=== PATIENT | male | born 1965 | race Caucasian/White ===

== ENCOUNTER 2016-05-26 14:52 | Emergency (ER) | payer MEDICAID, MEDICARE ==
[~2016-05-26] VITALS: Ht 177.8 cm; Wt 114.5 kg
[~2016-05-26 14:52] MED LIST: BENI20TA25 PO; CYCL-36 PO; DIAZ5 PO; PRED5 PO; TRAZ100T4 PO
[2016-05-26 15:01] VITALS: BP 136/79; PULSE 103; RESP 20; TEMP 99.3; O2SAT 97
[2016-05-26] MEDS ORDERED: CYCL1TAB29 PO (15:19)
[2016-05-26] MEDS ORDERED: BENI20TA5 PO (15:19)
[2016-05-26] MEDS ORDERED: ZEGE20CA4 PO (15:19)
[2016-05-26] MEDS ORDERED: PRED5TAB PO (15:19)
[2016-05-26] MEDS ORDERED: IBUP800T23 PO (15:19)
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
== END 2016-05-26 17:02 | disposition left against medical advice (07) ==
LOC: PHEFT 14:52
DX: F41.8 Other specified anxiety disorders (principal); S89.81XA Other specified injuries of right lower leg, initial encounter; I10 Essential (primary) hypertension; Z72.0 Tobacco use; F10.20 Alcohol dependence, uncomplicated; V09.09XA Pedestrian injured in nontraffic accident involving other motor vehicles, initial encounter; Y93.I9 Activity, other involving external motion; Y99.9 Unspecified external cause status
CPT/HCPCS: 99283

== ENCOUNTER 2016-09-27 13:53 | Observation (INO) | payer OTHER ==
[~2016-09-27] VITALS: Ht 177.8 cm; Wt 111.4 kg
[~2016-09-27 13:53] MED LIST changes: -BENI20TA25 PO; +BENI20TA5 PO; -CYCL-36 PO; +CYCL1TAB29 PO; -DIAZ5 PO; +IBUP800T23 PO; -PRED5 PO; +PRED5TAB PO; -TRAZ100T4 PO; +ZEGE20CA4 PO
[2016-09-27 13:55] VITALS: BP 165/101; PULSE 87; RESP 24; TEMP 99.1; O2SAT 97
[2016-09-27 14:45] VITALS: O2SAT 99
[2016-09-27] MEDS ORDERED: methylPREDNISolone SOD SUCC 125 MG/2 ML VIAL IVP ONE (14:45)
[2016-09-27] MEDS ORDERED: SODIUM CHLORIDE 0.9% FLUSH 10 ML FLUSH IVF PRN (14:45)
[2016-09-27] MEDS ORDERED: MORPHINE SULFATE 4 MG/ML INJ IV PUSH ONE ×2 (14:45→17:45)
--- NOTE | 2016-09-27 14:55 | RADRPT ---
EXAM DATE/TIME: 09/27/2016 14:49 [facility] COMPARISON: No previous studies available for comparison. INDICATIONS : Cough and left side chest pain for one week. MEDICAL HISTORY : Smoker. SURGICAL HISTORY : None. ENCOUNTER: Initial ACUITY: 1 week PAIN SCORE: 8/10 LOCATION: Left chest FINDINGS: A single view of the chest demonstrates the lungs to be symmetrically aerated without evidence of mas s, infiltrate or effusion. The cardiomediastinal contours are unremarkable. Osseous structures are intact. CONCLUSION: No acute disease. Mj Brooks MD on September 27, 2016 at 14:54 Board Certified Radiologist. This report was verified electronically.
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
[2016-09-27] MEDS: RESP: ALBUTEROL 2.5 MG/IPRATROPIUM 0.5 MG NEB (SCH) INH ×2 (15:30→15:33)
[2016-09-27 15:44] LABS: AUTOMATED NEUTROPHIL # 6.3 TH/MM3 (1.8-7.7); BASOPHIL % 0.5 % (0.0-2.0); EOSINOPHIL # 0.4 TH/MM3 (0-0.4); EOSINOPHIL % 3.8 % (0.0-4.0); HEMATOCRIT 47.6 % (39.0-51.0); HEMO FLAGS DIFF FINAL; LYMPH % 20.9 % (9.0-44.0); MEAN CELL VOLUME 90.6 FL (80.0-100.0); MEAN CORPUSCULAR HEMOGLOBIN 31.3 PG (27.0-34.0); MEAN CORPUSCULAR HGB CONC 34.5 % (32.0-36.0); MONO % 9.4 % (0.0-8.0); NEUT % 65.4 % (16.0-70.0); PLATELET COUNT 257 TH/MM3 (150-450); RED BLOOD COUNT 5.25 MIL/MM3 (4.50-5.90); RED CELL DISTRIBUTION WIDTH 13.9 % (11.6-17.2); WHITE BLOOD COUNT 9.6 TH/MM3 (4.0-11.0)
[2016-09-27 16:03] LABS: APTT (PATIENT) 28.2 SEC (24.3-30.1); PROTHROMBIN TIME - PATIENT 10.5 SEC (9.8-11.6)
[2016-09-27 16:06] LABS: ALT (GPT) 26 U/L (12-78); ANION GAP 10 MEQ/L (5-15); AST (GOT) 20 U/L (15-37); BICARBONATE 27.5 MEQ/L (21.0-32.0); BLOOD UREA NITROGEN 4 MG/DL (7-18); CHLORIDE 101 MEQ/L (98-107); GLOMERULAR FILTRATION RATE 119 ML/MIN (>89); POTASSIUM 4.1 MEQ/L (3.5-5.1); SODIUM (NA) 138 MEQ/L (136-145)
[2016-09-27 16:20] LABS: ALKALINE PHOSPHATASE 77 U/L (45-117); CREATINE KINASE 116 U/L (39-308); TOTAL BILIRUBIN ADULT 0.3 MG/DL (0.2-1.0)
[2016-09-27 16:38] LABS: CKMB 3.8 NG/ML (0.5-3.6)
[2016-09-27 16:45] VITALS: BP 155/72; PULSE 105; RESP 19; O2SAT 92
[2016-09-27] MEDS ORDERED: IOHEXOL 350 MG/ML 10 ML VIAL (for RAD DIAG) IV ONE (17:20)
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
[2016-09-27 17:48] VITALS: BP 157/75; PULSE 105; RESP 19; O2SAT 92
[2016-09-27] MEDS ORDERED: RESP: ALBUTEROL 1.25 MG/3 ML NEB (PRN) NEB (18:00)
[2016-09-27] MEDS ORDERED: ACETAMINOPHEN/HYDROcodone 325 MG/5 MG TAB PO PRN ×3 (18:00→18:15)
[2016-09-27] MEDS ORDERED: RESP: ALBUTEROL 2.5 MG/IPRATROPIUM 0.5 MG NEB (SCH) NEB (20:00)
[2016-09-27 20:06] VITALS: BP 170/91; PULSE 119; RESP 18; TEMP 99.4; O2SAT 92
[2016-09-27] MEDS ORDERED: LIDOCAINE HCL 5% PATCH T-DERMAL PRN (20:30)
[2016-09-27] MEDS ORDERED: RESP: ALBUTEROL 2.5 MG/IPRATROPIUM 0.5 MG NEB (PRN) NEB (20:30)
[2016-09-27] MEDS ORDERED: BISACODYL 10 MG SUPP RECTAL PRN (20:30)
[2016-09-27] MEDS ORDERED: ACETAMINOPHEN 325 MG TAB PO PRN (20:30)
[2016-09-27] MEDS ORDERED: SODIUM CHLORIDE 0.9% FLUSH 10 ML FLUSH IV FLUSH PRN (20:30)
[2016-09-27] MEDS ORDERED: ONDANSETRON HCL 4 MG/2 ML VIAL IVP PRN (20:30)
--- NOTE | 2016-09-27 20:34 | HHI.HP ---
[facility] Dali Nelson MD Admission Diagnosis chest pain, rib fracture, reactive airway disease, hypoxia Diagnoses: (1) Chest pain Diagnosis: Principal (2) Rib fracture Diagnosis: Principal (3) COPD (chronic obstructive pulmonary disease) Diagnosis: Principal (4) Tobacco abuse Diagnosis: Principal Travel History International Travel<30 Days: No Contact w/Intl Traveler <30 Da: No Traveled to Known Affected Are: No History of Present Illness This is a 51-year-old male with PMH of Anxiety, Depression, h/o Left BKA, COPD and Tobacco Abuse who was brought to the ER by EMS secondary to complaints of chest pain and cough x5 days, thinks he may have a broken rib although denies recent injury/trauma. No fever, chills or SOB reported. On arrival, BP 165/101 , HR 87, O2 sat 97% on RA, Temp 99.1. CBC unremarkable. Chemistry essentially unremarkable. Troponin negative. CXR with no acute findings. CTA Pulm negative for PE, noted to have minimally displaced fracture of left 6th rib and old fractures of left 7th and 8th ribs. On exam, pt noted to have wheezing, s/ p Solu-Medrol and DuoNeb in ER w/ some improvement. Review of Systems Except as stated in HPI: all other systems reviewed are Neg ROS: 14 point review of systems otherwise negative. Past Family Social History Past Medical History PMH: Anxiety, Depression, h/o Left BKA, COPD and Tobacco Abuse Past Surgical History PAST SURGICAL HISTORY: Hernia Repair, Craniotomy Allergies: Coded Allergies: Codeine (Verified Allergy, Severe, 09/27/16) Penicillin (Verified Allergy, Severe, 09/27/16) Xanax (Verified Allergy, Severe, 09/27/16) Family History PAST FAMILY HISTORY: Reviewed. No h/o DM or CAD Social History PAST SOCIAL HISTORY: Positive for alcohol. Positive for tobacco. Negative for drugs. Physical Exam Vital Signs Vital Signs Date Time Temp Pulse Resp B/P Pulse Ox O2 Delivery O2 Flow Rate FiO2 09/27/16 20:06 99.4 119 18 170/91 92 09/27/16 17:48 105 19 157/75 92 Nasal Cannula 4 09/27/16 17:45 94 Nasal Cannula 4 09/27/16 16:45 105 19 155/72 92 Room Air 09/27/16 14:45 99 Room Air 09/27/16 14:45 99 Room Air 09/27/16 13:58 98 Room Air 09/27/16 13:55 99.1 87 24 165/101 97 Physical Exam PE: GENERAL: Middle-aged male in no acute distress. HEENT: PERRLA, EOMI. No scleral icterus or conjunctival pallor. No lid lag or facial droop. CARDIOVASCULAR: Regular rate and rhythm. No obvious murmurs to auscultation. No chest tenderness to palpation. Left rib cage tenderness to palpation RESPIRATORY: No obvious rhonchi. Occasional wheezing. Clear to auscultation. Breath sounds equal bilaterally. GASTROINTESTINAL: Abdomen soft, non-tender, nondistended. BS normal. MUSCULOSKELETAL: Extremities without clubbing, cyanosis, or edema. No obvious deformities. Left K NEUROLOGICAL: Awake, alert and oriented x4. No focal neurologic deficits. Moving both upper and lower extremities spontaneously. Laboratory Laboratory Tests Test 09/27/16 14:55 White Blood Count 9.6 Red Blood Count 5.25 Hemoglobin 16.4 Hematocrit 47.6 Mean Corpuscular Volume 90.6 Mean Corpuscular Hemoglobin 31.3 Mean Corpuscular Hemoglobin 34.5 Concent Red Cell Distribution Width 13.9 Platelet Count 257 Mean Platelet Volume 9.2 Neutrophils (%) (Auto) 65.4 Lymphocytes (%) (Auto) 20.9 Monocytes (%) (Auto) 9.4 Eosinophils (%) (Auto) 3.8 Basophils (%) (Auto) 0.5 Neutrophils # (Auto) 6.3 Lymphocytes # (Auto) 2.0 Monocytes # (Auto) 0.9 Eosinophils # (Auto) 0.4 Basophils # (Auto) 0.0 CBC Comment DIFF FINAL Differential Comment Prothrombin Time 10.5 Prothromb Time International 1.0 Ratio Activated Partial 28.2 Thromboplast Time Sodium Level 138 Potassium Level 4.1 Chloride Level 101 Carbon Dioxide Level 27.5 Anion Gap 10 Blood Urea Nitrogen 4 Creatinine 0.70 Estimat Glomerular Filtration 119 Rate Random Glucose 94 Calcium Level 9.1 Total Bilirubin 0.3 Aspartate Amino Transf 20 (AST/SGOT) Alanine Aminotransferase 26 (ALT/SGPT) Alkaline Phosphatase 77 Total Creatine Kinase 116 Creatine Kinase MB 3.8 Troponin I LESS THAN 0.02 Total Protein 7.2 Albumin 3.5 Ethyl Alcohol Level LESS THAN 3 Result Diagram: 09/27/16 1455 09/27/16 1455 Assessment and Plan Problem List: (1) Chest pain ICD Code: R07.9 Status: Acute (2) Rib fracture ICD Code: S22.39XA Status: Acute (3) COPD (chronic obstructive pulmonary disease) ICD Code: J44.9 Status: Acute (4) Tobacco abuse ICD Code: Z72.0 Status: Acute Assessment and Plan A/P: 1. Chest Pain: Atypical, unlikely cardiac in origin, likely secondary to acute rib fracture and COPD. Initial trop negative, EKG w/ no acute ischemia. Admit for Observation, place on telemetry, check serial cardiac enzymes, analgesics/antiemetics as needed. ASA, Statin, Metoprolol. 2. Rib Fracture: CXR w/ no acute findings. CTA Pulm negative for PE, positive for acute left 6th rib fracture, old left 7th and 8th fractures, images reviewed by me, denies trauma/injury. Lidoderm patch prn, DuoNeb, analgesics. 3. COPD: Chronic Respiratory Failure w/ Acute Exacerbation, +wheezing on exam , CXR w/ no acute findings as above. S/p Solu-Medrol and DuoNeb w/ some improvement, continue w/ Solu-Medrol, DuoNeb, Mucinex, Symbicort. 4. HTN: Uncontrolled. BP 150-170's, start Metoprolol, monitor BP. 5. Tobacco Abuse: Pt counselled. Ativan prn if needed, no NicoDerm to avoid vasoconstriction. 6. DVT Prophylaxis: SCD/teds. 7. Social work for DC planning as needed. 8. Case discussed at length with ER physician. Problem Qualifiers (1) Chest pain: Qualified Code: R07.9 - Chest pain, unspecified type (2) Rib fracture: Qualified Code: S22.32XA - Closed fracture of one rib of left side, initial encounter Ritu Park MD September 27, 2016 20:34
[2016-09-27 20:42] VITALS: O2SAT 92
[2016-09-27] MEDS ORDERED: REMOVE OLD LIDOCAINE PATCH T-DERMAL PRN (20:45)
[2016-09-27] MEDS: guaiFENesin E.R. 600 MG TAB PO SCH (22:30)
[2016-09-27] MEDS: SODIUM CHLORIDE 0.9% FLUSH 10 ML FLUSH IV FLUSH SCH (22:31)
[2016-09-27] MEDS: methylPREDNISolone SOD SUCC 40 MG/1 ML VIAL IV PUSH SCH (22:31)
[2016-09-27] MEDS: BUDESONIDE-FORMOTEROL 160/4.5 MCG INHALER INH SCH (23:00)
[2016-09-27] MEDS: MORPHINE SULFATE 4 MG/ML INJ IV PUSH PRN (23:01)
[2016-09-28] VITALS (9 sets, daily range): BP systolic 123–178; BP diastolic 71–95; PULSE 96–115; RESP 19–22; TEMP 96.8–99.4; O2SAT 92–99
[2016-09-28] MEDS: methylPREDNISolone SOD SUCC 40 MG/1 ML VIAL IV PUSH SCH ×4 (04:05→23:48)
[2016-09-28 05:13] LABS: AUTOMATED NEUTROPHIL # 12.4 TH/MM3 (1.8-7.7); BASOPHIL % 0.3 % (0.0-2.0); EOSINOPHIL % 0.1 % (0.0-4.0); HEMATOCRIT 49.4 % (39.0-51.0); HEMO FLAGS DIFF FINAL; LYMPH % 7.7 % (9.0-44.0); LYMPHOCYTE # 1.1 TH/MM3 (1.0-4.8); MEAN CELL VOLUME 91.6 FL (80.0-100.0); MEAN CORPUSCULAR HEMOGLOBIN 30.6 PG (27.0-34.0); MEAN CORPUSCULAR HGB CONC 33.4 % (32.0-36.0); MONO % 4.1 % (0.0-8.0); NEUT % 87.8 % (16.0-70.0); PLATELET COUNT 300 TH/MM3 (150-450); RED BLOOD COUNT 5.39 MIL/MM3 (4.50-5.90); RED CELL DISTRIBUTION WIDTH 13.7 % (11.6-17.2); WHITE BLOOD COUNT 14.1 TH/MM3 (4.0-11.0)
[2016-09-28 05:31] LABS: ALT (GPT) 25 U/L (12-78); ANION GAP 9 MEQ/L (5-15); AST (GOT) 14 U/L (15-37); BLOOD UREA NITROGEN 8 MG/DL (7-18); CHLORIDE 99 MEQ/L (98-107); GLOMERULAR FILTRATION RATE 89 ML/MIN (>89); POTASSIUM 4.2 MEQ/L (3.5-5.1); SODIUM (NA) 136 MEQ/L (136-145)
[2016-09-28 05:34] LABS: ALKALINE PHOSPHATASE 80 U/L (45-117); TOTAL BILIRUBIN ADULT 0.5 MG/DL (0.2-1.0)
[2016-09-28] MEDS: RESP: ALBUTEROL 2.5 MG/IPRATROPIUM 0.5 MG NEB (SCH) NEB ×4 (07:53→19:29)
[2016-09-28] MEDS ORDERED: METOPROLOL TARTRATE 25 MG TAB PO SCH (09:00)
[2016-09-28] MEDS: ASPIRIN EC 81 MG TABEC PO SCH (09:46)
[2016-09-28] MEDS: guaiFENesin E.R. 600 MG TAB PO SCH ×2 (09:46→19:53)
[2016-09-28] MEDS: BUDESONIDE-FORMOTEROL 160/4.5 MCG INHALER INH SCH ×2 (09:46→19:54)
[2016-09-28] MEDS: PRAVASTATIN SOD 40 MG TAB PO SCH (09:46)
[2016-09-28] MEDS: SODIUM CHLORIDE 0.9% FLUSH 10 ML FLUSH IV FLUSH SCH ×2 (09:47→19:54)
[2016-09-28] MEDS: MORPHINE SULFATE 4 MG/ML INJ IV PUSH PRN ×3 (09:56→22:25)
[2016-09-28] MEDS ORDERED: ENDO10TA8 PO (11:02)
--- NOTE | 2016-09-28 11:27 | HHI.PR ---
Subjective Remarks Follow up for COPD exacerbation, rib fracture, chest pain. The patient reports feeling slightly better however still short of breath and wheezing. He does not feel ready for discharge. Chest pain improved. Now has left posterior thorax pain when he coughs.Still with intractable nonproductive cough, worse with deep inspiration. Denies fevers/chills. He feels the nebulizer treatments are helping tremendously. O2 sat 92% on room air. He does not wear oxygen at home. He also does not have any medications at home for his COPD, including no rescue inhaler. He also complains of chronic back pain. He sees Dr. Ramey pain management, last seen 1-2 weeks ago, states he's prescribed Percocet 10mg q6h prn pain which I was able to verify on [employer] [place] [facility] Drug Monitoring website. The patient reports exacerbation of his back spasms, requests flexeril or soma, he states he is also prescribed this by pain management. Objective Vitals Vital Signs Date Time Temp Pulse Resp B/P Pulse Ox O2 Delivery O2 Flow Rate FiO2 09/28/16 07:53 92 21 09/28/16 07:34 98.3 98 22 147/95 99 09/28/16 05:35 22 09/28/16 04:00 99.4 106 22 132/76 92 09/28/16 01:31 20 09/28/16 00:00 99.3 115 22 178/95 92 09/27/16 20:42 92 21 09/27/16 20:06 99.4 119 18 170/91 92 09/27/16 17:48 105 19 157/75 92 Nasal Cannula 4 09/27/16 17:45 94 Nasal Cannula 4 09/27/16 16:45 105 19 155/72 92 Room Air 09/27/16 14:45 99 Room Air 09/27/16 14:45 99 Room Air 09/27/16 13:58 98 Room Air 09/27/16 13:55 99.1 87 24 165/101 97 I/O 09/27/16 09/27/16 09/27/16 09/28/16 09/28/16 09/28/16 07:00 15:00 23:00 07:00 15:00 23:00 Intake Total 500 ml Output Total 1800 ml Balance -1300 ml Intake Oral 500 ml Output Urine Total 1800 ml # Bowel Movements 0 Result Diagram: 09/28/16 0423 09/28/16 0423 Imaging Last Impressions Chest X-Ray 09/27/16 1437 Signed Impressions: Service Date/Time: Tuesday, September 27, 2016 14:49 - CONCLUSION: No acute disease. Mj Brooks MD CT Angiography 09/27/16 1437 Signed Impressions: Service Date/Time: Tuesday, September 27, 2016 17:03 - CONCLUSION: 1. No pulmonary embolus. 2. Minimally displaced fracture posteriorly of the left sixth rib that is potentially recent. There are old fractures of the left seventh and eighth ribs with incomplete healing. 3. Left posterior pleural thickening and tiny effusion. Mild left base atelectasis. 4. Coronary artery calcification. Abdirashid Conde MD Objective Remarks GENERAL: Well-nourished, well-developed disheveled appearing middle aged male patient in [facility]. SKIN: Warm and dry. No rash. HEENT: Normocephalic. Atraumatic.Pupils equal and round. Mucous membranes pink and moist. NECK: Supple. Trachea midline. CARDIOVASCULAR: Regular rate and rhythm. S1, S2 noted. No murmur appreciated. Left anterior and posterior chest wall tender to palpation. RESPIRATORY: No accessory muscle use. Diffuse expiratory wheezing with diminished breath sounds at bilateral bases. GASTROINTESTINAL: Abdomen soft, non-tender, nondistended. Normoactive bowel sounds x4. MUSCULOSKELETAL: Left BKA. Extremities without clubbing, cyanosis, or edema. NEUROLOGICAL: Awake and alert. No obvious cranial nerve deficits. Motor grossly within normal limits. Normal speech. PSYCHIATRIC: Appropriate mood and affect; insight and judgment normal. Medications and IVs Current Medications Medications (Trade) Dose Ordered Sig/Lan Route Start Time Stop Time Status Last Admin (SoluMEDROL INJ) 40 mg Q6HR IV PUSH 09/28/16 00:00 09/28/16 04:05 (Symbicort 160-4.5 Inh) 2 puff Q12HR INH 09/27/16 21:00 09/28/16 09:46 (Mucinex Er) 600 mg BID PO 09/27/16 21:00 09/28/16 09:46 (NS Flush) 2 ml UNSCH PRN IV FLUSH 09/27/16 20:30 (NS Flush) 2 ml BID IV FLUSH 09/27/16 21:00 09/28/16 09:47 (Zofran Inj) 4 mg Q6H PRN IVP 09/27/16 20:30 (Dulcolax Supp) 10 mg DAILY PRN RECTAL 09/27/16 20:30 (Tylenol) 650 mg Q6H PRN PO 09/27/16 20:30 (Lidoderm 5% Patch.12 Hr) 1 patch DAILY PRN T-DERMAL 09/27/16 20:30 Miscellaneous Information 1 Q24H PRN T-DERMAL 09/27/16 20:45 (Lopressor) 25 mg Q12HR PO 09/28/16 09:00 09/28/16 09:46 (Ecotrin Ec) 81 mg DAILY PO 09/28/16 09:00 09/28/16 09:46 (Pravachol) 40 mg DAILY PO 09/28/16 09:00 09/28/16 09:46 (Percocet 10-325 Mg) 1 tab Q6H PRN PO 09/28/16 11:15 UNV (Morphine Inj) 2 mg Q4H PRN IV PUSH 09/28/16 12:30 UNV A/P Problem List: (1) Chest pain ICD Code: R07.9 Status: Acute (2) Rib fracture ICD Code: S22.39XA Status: Acute (3) COPD (chronic obstructive pulmonary disease) ICD Code: J44.9 Status: Acute (4) Tobacco abuse ICD Code: Z72.0 Status: Acute Assessment and Plan 51-year-old male with PMH of Anxiety, Depression, h/o Left BKA, COPD and Tobacco Abuse who was brought to the ER by EMS secondary to complaints of chest pain and cough x5 days, thinks he may have a broken rib although denies recent injury/trauma. Chest Pain: Atypical, unlikely cardiac in origin, likely secondary to acute rib fracture and COPD. ACS ruled out with negative serial cardiac enzymes x3 and EKG w/ no acute ischemia. Analgesics/antiemetics as needed. ASA, Statin. Avoid BB with acute COPD exac. Check lipid panel in am. Acute Rib Fracture: CXR w/ no acute findings. CTA Pulm negative for PE, positive for acute left posterior 6th rib fracture, old left 7th and 8th fractures, images reviewed by me, denies trauma/injury. Lidoderm patch prn, DuoNeb, analgesics. Acute COPD Exacerbation: significant wheezing on exam, CXR w/ no acute findings as above. Continue IV Solu-Medrol 40mg q6h, DuoNeb q4h lan and q2h prn, Mucinex bid, Symbicort bid. Add Tessalon for cough. Incentive spirometry. Consider walk test tomorrow when patient improves. HTN: Uncontrolled. BP 150-170's, start Norvasc, monitor BP, adjust dosing as needed. Tobacco Abuse: Pt counselled. Ativan prn if needed, no NicoDerm to avoid vasoconstriction. Chronic Back Pain: follows with pain management Dr. Ramey. Restart patient's Percocet 10/325mg q6h prn pain (dosing verified on [employer] [facility] [place] [facility] Monitoring website). Flexeril prn spasms. DVT Prophylaxis: SCD/teds. Discharge Planning Pending further clinical improvement. Not yet ready for discharge. Likely discharge tomorrow. Problem Qualifiers (1) Chest pain: Qualified Code: R07.9 - Chest pain, unspecified type (2) Rib fracture: Qualified Code: S22.32XA - Closed fracture of one rib of left side, initial encounter Michelle Travis PA-C September 28, 2016 11:27 am
[2016-09-28] MEDS ORDERED: amLODIPine BESYLATE 5 MG TAB PO ONE (11:30)
[2016-09-28] MEDS ORDERED: CYCLOBENZAPRINE HCL 10 MG TAB PO PRN (12:00)
[2016-09-28] MEDS: BENZONATATE 100 MG CAP PO SCH ×2 (13:12→17:19)
[2016-09-28] MEDS: NICOTINE 21 MG/24 HR PATCH T-DERMAL SCH (17:12)
[2016-09-28] MEDS: oxyCODONE/ACETAMINOPHEN 10 MG/325 MG TAB PO PRN (19:54)
[2016-09-28] MEDS ORDERED: MELATONIN 5 MG TAB PO ONE (20:15)
[2016-09-29] VITALS (8 sets, daily range): BP systolic 130–152; BP diastolic 58–89; PULSE 93–108; RESP 16–20; TEMP 98–98.9; O2SAT 91–94
[2016-09-29] MEDS: oxyCODONE/ACETAMINOPHEN 10 MG/325 MG TAB PO PRN ×4 (01:34→21:59)
[2016-09-29] MEDS: methylPREDNISolone SOD SUCC 40 MG/1 ML VIAL IV PUSH SCH (05:41)
[2016-09-29] MEDS: MORPHINE SULFATE 4 MG/ML INJ IV PUSH PRN ×3 (05:42→19:04)
[2016-09-29] MEDS: RESP: ALBUTEROL 2.5 MG/IPRATROPIUM 0.5 MG NEB (SCH) NEB ×4 (07:08→19:15)
[2016-09-29] MEDS: BUDESONIDE-FORMOTEROL 160/4.5 MCG INHALER INH SCH ×2 (09:00→20:18)
[2016-09-29] MEDS: amLODIPine BESYLATE 5 MG TAB PO SCH (09:38)
[2016-09-29] MEDS: ASPIRIN EC 81 MG TABEC PO SCH (09:38)
[2016-09-29] MEDS: BENZONATATE 100 MG CAP PO SCH ×3 (09:38→17:23)
[2016-09-29] MEDS: guaiFENesin E.R. 600 MG TAB PO SCH ×2 (09:38→20:18)
[2016-09-29] MEDS: PANTOPRAZOLE SOD 40 MG DELAYED RELEASE TAB PO SCH (09:39)
[2016-09-29] MEDS: SODIUM CHLORIDE 0.9% FLUSH 10 ML FLUSH IV FLUSH SCH ×2 (09:39→20:20)
[2016-09-29] MEDS: PRAVASTATIN SOD 40 MG TAB PO SCH (09:39)
[2016-09-29] MEDS: NICOTINE 21 MG/24 HR PATCH T-DERMAL SCH (09:39)
[2016-09-29] MEDS: REMOVE OLD PATCH T-DERMAL SCH (09:40)
--- NOTE | 2016-09-29 11:14 | HHI.PR ---
Subjective Remarks Follow-up for chest wall pain and rib fractures. The patient is sleeping and snoring upon arrival. Upon awakening the patient immediately complains of intractable rib pain. He repeatedly asks for morphine which he states is due in 30 minutes. He denies any shortness of breath. He feels that the nebulizer treatments are helping. He reports a "clicking" pain in his left ribs with breathing. He feels like the rib fractures are from severe coughing. He feels like his coughing is caused by cigars, he does not plan on smoking anymore. He feels that the coughing is improving. He reports he has been using Acapella. He states that he is homeless and has nowhere to go when he is discharged and is asking to remain in the hospital. Objective Vitals Vital Signs Date Time Temp Pulse Resp B/P Pulse Ox O2 Delivery O2 Flow Rate FiO2 09/29/16 08:45 98.3 97 20 152/89 94 09/29/16 07:10 92 21 09/29/16 03:26 98.0 98 18 134/71 91 09/28/16 23:51 98.1 104 19 159/74 92 09/28/16 19:40 98.8 106 19 136/78 93 09/28/16 19:20 95 09/28/16 17:25 20 09/28/16 15:50 97.8 96 20 123/71 95 09/28/16 11:46 96.8 96 20 134/76 99 I/O 09/28/16 09/28/16 09/28/16 09/29/16 09/29/16 09/29/16 06:59 14:59 22:59 06:59 14:59 22:59 Intake Total 500 ml 240 ml Output Total 1800 ml 700 ml Balance -1300 ml 240 ml -700 ml Intake Oral 500 ml 240 ml Output Urine Total 1800 ml 700 ml # Voids 1 # Bowel Movements 0 Result Diagram: 09/28/16 0423 09/28/16422 Imaging Last Impressions Chest X-Ray 09/27/161436 Signed Impressions: Service Date/Time: Tuesday, September 27, 2016 14:49 - CONCLUSION: No acute disease. Mj Brooks MD CT Angiography 09/27/161436 Signed Impressions: Service Date/Time: Tuesday, September 27, 2016 17:03 - CONCLUSION: 1. No pulmonary embolus. 2. Minimally displaced fracture posteriorly of the left sixth rib that is potentially recent. There are old fractures of the left seventh and eighth ribs with incomplete healing. 3. Left posterior pleural thickening and tiny effusion. Mild left base atelectasis. 4. Coronary artery calcification. Abdirashid Conde MD Objective Remarks GENERAL: Well-developed well-nourished. In no acute distress. SKIN: Warm and dry. No lesions noted. HEENT: Normocephalic. Pupils equal and round. Mucous membranes pink and moist. CARDIOVASCULAR: Regular rate and rhythm. No murmur appreciated. RESPIRATORY: No accessory muscle use. Clear to auscultation. Breath sounds equal bilaterally. No wheezing. GASTROINTESTINAL: Abdomen soft, non-tender, nondistended. Bowel sounds x4. MUSCULOSKELETAL: Left BKA. No clubbing or cyanosis. No edema. Patient reports left chest wall pain is improved with palpation. NEUROLOGICAL: Awake and alert. No focal neurological deficits. Moves upper and lower extremities spontaneously. Normal speech. PSYCHIATRIC: Appropriate mood and affect; insight and judgment normal. A/P Problem List: (1) Chest pain ICD Code: R07.9 Status: Acute (2) Rib fracture ICD Code: S22.39XA Status: Acute (3) COPD (chronic obstructive pulmonary disease) ICD Code: J44.9 Status: Acute (4) Tobacco abuse ICD Code: Z72.0 Status: Chronic Assessment and Plan 51-year-old male with PMH of Anxiety, Depression, h/o Left BKA, COPD and Tobacco Abuse who was brought to the ER by EMS secondary to complaints of chest pain and cough x5 days, thinks he may have a broken rib although denies recent injury/trauma. Chest Pain: Atypical, unlikely cardiac in origin, likely secondary to acute rib fracture and COPD. ACS ruled out with negative serial cardiac enzymes x3 and EKG w/ no acute ischemia. Analgesics/antiemetics as needed. Started on ASA , Statin. Avoid BB with acute COPD exac. Lipid panel with elevated LDL 134. Acute Rib Fracture: CXR w/ no acute findings. CTA Pulm negative for PE, positive for acute left posterior 6th rib fracture, old left 7th and 8th fractures. Denies trauma/injury, likely due to severe coughing. No signs of pathologic fracture on chest CT. Control cough and treat COPD. Lidoderm patch. Oxycodone with IV morphine for breakthrough. Incentive spirometry. Acute COPD Exacerbation: CXR w/ no acute findings as above. Change IV steroids to oral prednisone. Scheduled and as needed nebs. Mucinex bid, Tessalon tid. Symbicort bid. Consider walk test when patient improves. HTN: Uncontrolled. Started on amlodipine. BP better controlled today. Monitor. Tobacco Abuse: Patient counseled on cessation. Chronic Back Pain: follows with pain management Dr. Ramey. Restart patient's Percocet 10/325mg q6h prn pain (dosing was verified on [employer] [place] Prescription Drug Monitoring website). Flexeril prn spasms. GERD: Chronic. Continue PPI. DVT Prophylaxis: SCD/teds. Discharge Planning Case management consulted for assistance with discharge disposition. PT gary. Problem Qualifiers (1) Chest pain: Qualified Code: R07.9 - Chest pain, unspecified type (2) Rib fracture: Qualified Code: S22.32XA - Closed fracture of one rib of left side, initial encounter (3) COPD (chronic obstructive pulmonary disease): Qualified Code: J44.1 - Chronic obstructive pulmonary disease with acute exacerbation Aldair Ferreiar September 29, 2016 11:09
[2016-09-29] MEDS: LIDOCAINE HCL 5% PATCH T-DERMAL SCH (12:56)
[2016-09-29] MEDS: predniSONE 20 MG TAB PO SCH (20:19)
[2016-09-29] MEDS ORDERED: ZOLPIDEM TARTRATE 5 MG TAB PO ONE (20:45)
[2016-09-30] MEDS: MORPHINE SULFATE 4 MG/ML INJ IV PUSH PRN ×3 (00:02→12:52)
[2016-09-30 04:58] VITALS: BP 143/86; PULSE 87; RESP 19; O2SAT 96
[2016-09-30] MEDS: RESP: ALBUTEROL 2.5 MG/IPRATROPIUM 0.5 MG NEB (SCH) NEB ×2 (06:38→12:00)
[2016-09-30 07:12] VITALS: BP 129/74; PULSE 81; RESP 20; TEMP 99.1; O2SAT 94
[2016-09-30] MEDS ORDERED: ASPI81TA11 PO (08:30)
[2016-09-30] MEDS ORDERED: LIDO5DIS35 T-DERMAL (08:30)
[2016-09-30] MEDS ORDERED: IPRASOL NEB (08:30)
[2016-09-30] MEDS ORDERED: SYMB160A INH (08:30)
[2016-09-30] MEDS ORDERED: MUCI600T PO (08:30)
[2016-09-30] MEDS ORDERED: PRED20 PO (08:30)
[2016-09-30] MEDS ORDERED: PRAV40TA PO (08:30)
[2016-09-30] MEDS ORDERED: AMLO5 PO (08:30)
[2016-09-30] MEDS ORDERED: NEBULIZER1 MI1 (08:31)
[2016-09-30] MEDS ORDERED: BENZ100 PO (08:35)
--- NOTE | 2016-09-30 08:37 | HHI.DS ---
Discharge Summary Admission Date September 27, 2016 at 17:55 Discharge Date: September 30, 2016 Admitting Diagnosis chest pain, rib fracture, reactive airway disease, hypoxia (1) Chest pain ICD Code: R07.9 Diagnosis: Secondary (2) Rib fracture ICD Code: S22.39XA Diagnosis: Principal (3) COPD (chronic obstructive pulmonary disease) ICD Code: J44.9 Diagnosis: Principal (4) Tobacco abuse ICD Code: Z72.0 Diagnosis: Secondary Procedures None Brief History - From Admission This is a 51-year-old male with PMH of Anxiety, Depression, h/o Left BKA, COPD and Tobacco Abuse who was brought to the ER by EMS secondary to complaints of chest pain and cough x5 days, thinks he may have a broken rib although denies recent injury/trauma. No fever, chills or SOB reported. On arrival, BP 165/101 , HR 87, O2 sat 97% on RA, Temp 99.1. CBC unremarkable. Chemistry essentially unremarkable. Troponin negative. CXR with no acute findings. CTA Pulm negative for PE, noted to have minimally displaced fracture of left 6th rib and old fractures of left 7th and 8th ribs. On exam, pt noted to have wheezing, s/ p Solu-Medrol and DuoNeb in ER w/ some improvement. CBC/BMP: 09/28/16 0423 09/28/16 0423 Significant Findings Laboratory Tests Test 09/27/16 09/28/16 09/28/16 09/29/16 14:55 00:15 04:23 06:48 Monocytes (%) (Auto) 9.4 % (0.0-8.0) Blood Urea Nitrogen 4 MG/DL (7-18) Creatine Kinase MB 3.8 NG/ML (0.5-3.6) Troponin I LESS THAN 0.02 LESS THAN 0.02 LESS THAN 0.02 NG/ML NG/ML NG/ML (0.02-0.05) (0.02-0.05) (0.02-0.05) White Blood Count 14.1 TH/MM3 (4.0-11.0) Neutrophils (%) (Auto) 87.8 % (16.0-70.0) Lymphocytes (%) (Auto) 7.7 % (9.0-44.0) Neutrophils # (Auto) 12.4 TH/MM3 (1.8-7.7) Random Glucose 152 MG/DL (74-106) Aspartate Amino Transf 14 U/L (15-37) (AST/SGOT) Cholesterol Level 203 MG/DL (120-200) LDL Cholesterol 134 MG/DL (0-99) Imaging Last Impressions Chest X-Ray 09/27/161436 Signed Impressions: Service Date/Time: Tuesday, September 27, 2016 14:49 - CONCLUSION: No acute disease. Mj Brooks MD CT Angiography 09/27/161436 Signed Impressions: Service Date/Time: Tuesday, September 27, 2016 17:03 - CONCLUSION: 1. No pulmonary embolus. 2. Minimally displaced fracture posteriorly of the left sixth rib that is potentially recent. There are old fractures of the left seventh and eighth ribs with incomplete healing. 3. Left posterior pleural thickening and tiny effusion. Mild left base atelectasis. 4. Coronary artery calcification. Abdirashid Conde MD PE at Discharge GENERAL: Well-developed well-nourished. In no acute distress. SKIN: Warm and dry. No lesions noted. HEENT: Normocephalic. Pupils equal and round. Mucous membranes pink and moist. CARDIOVASCULAR: Regular rate and rhythm. No murmur appreciated. RESPIRATORY: No accessory muscle use. Clear to auscultation. Breath sounds equal bilaterally. No wheezing. GASTROINTESTINAL: Abdomen soft, non-tender, nondistended. Bowel sounds x4. MUSCULOSKELETAL: Left BKA. No clubbing or cyanosis. No edema. NEUROLOGICAL: Awake and alert. No focal neurological deficits. Moves upper and lower extremities spontaneously. Normal speech. PSYCHIATRIC: Appropriate mood and affect; insight and judgment normal. Pt update on day of discharge The patient reports his breathing is significantly improved with nebulizer treatments. He states he has albuterol inhaler at home, but would appreciate a nebulizer machine. He reports that the Lidoderm patch helped his rib pain yesterday. He states that he receives money tomorrow and should be able to find a place to live. Hospital Course 51-year-old male with PMH of Anxiety, Depression, h/o Left BKA, COPD and Tobacco Abuse who was brought to the ER by EMS secondary to complaints of chest pain and cough x5 days, thinks he may have a broken rib although denies recent injury/trauma. Chest Pain: Atypical, unlikely cardiac in origin, likely secondary to acute rib fracture and COPD. ACS ruled out with negative serial cardiac enzymes x3 and EKG w/ no acute ischemia. Analgesics/antiemetics as needed. Started on ASA , Statin. Avoid BB with acute COPD exac. Lipid panel with elevated LDL 134. Acute Rib Fracture: CXR w/ no acute findings. CTA Pulm negative for PE, positive for acute left posterior 6th rib fracture, old left 7th and 8th fractures. Denies trauma/injury, likely due to severe coughing. No signs of pathologic fracture on chest CT. Control cough and treat COPD. Lidoderm patch for rib pain. Continue patient's Oxycodone for pain control. Incentive spirometry. Acute COPD Exacerbation: CXR w/ no acute findings as above. Received IV steroids, transitioned to short course of oral prednisone. Continue albuterol and DuoNeb's. Mucinex bid, Tessalon tid prn for cough. Started Symbicort bid. HTN: Better controlled after starting on amlodipine. Tobacco Abuse: Patient counseled on cessation. Chronic Back Pain: follows with pain management Dr. Ramey. Restart patient's Percocet 10/325mg q6h prn pain (dosing was verified on [employer] Prescription Drug Monitoring website). GERD: Chronic. Continue PPI. Pt Condition on Discharge: Stable Discharge Disposition: Discharge Home Discharge Time: > 30 minutes Discharge Instructions DIET: Follow Instructions for: Heart Healthy Diet Activities you can perform: Regular-No Restrictions Follow up Referrals: PCP Follow-up - 2-3 Days with Dali Nelson MD New Medications: Nebulizer (Nebulizer) 1 Mis Mis 1 EA .ROUTE DIRECTED Breathing Treatment #1 Ref 0 EA Amlodipine (Norvasc) 5 Mg Tab 5 MG PO DAILY Blood Pressure Management #[address] (Aspirin EC) 81 Mg Tabdr 81 MG PO DAILY Blood Clot Prevention #30 TAB Benzonatate (Tessalon Perles) 100 Mg Cap 100 MG PO TID PRN COUGH #21 CAP Budesonide-Formoterol Inh (Symbicort Inh) 160-4.5 Mcg/Act Aero 2 PUFF INH Q12HR Shortness of Breath #1 INHALER Guaifenesin ER 12 HR (Mucinex ER 12 HR) 600 Mg Devika 600 MG PO BID Cough #15 TAB Ipratropium-Albuterol Neb (Duoneb) 0.5-2.5 Mg/3 Ml Neb 1 AMPULE NEB Q4HR WHILE AWAKE NEB PRN SOB/WHEEZING Days 30 ML Lidocaine Patch 12 HR (Lidoderm Patch 12 HR) 5% Patch 1 PATCH T-DERMAL DAILY Pain Management #15 PATCH Pravastatin (Pravachol) 40 Mg Tab 40 MG PO HS Cholesterol Management #30 TAB Prednisone (Prednisone) 20 Mg Tab 20 MG PO BID Shortness of Breath #3 TAB Continued Medications: Ibuprofen (Ibuprofen) 800 Mg Tab 800 MG PO BID Arthritis Pain Ref 0 TAB Omeprazole-Sodium Bicarbonate (Zegerid) 20-1,100 Mg Cap 1 CAP PO DAILY #30 Ref 0 CAP Oxycodone-Acetaminophen (Endocet) 10-325 mg Tab 1 TAB PO Q6H PRN Pain Management #30 Ref 0 TAB Aldair Ferreira September 30, 2016 08:37
[2016-09-30] MEDS: amLODIPine BESYLATE 5 MG TAB PO SCH (08:59)
[2016-09-30] MEDS: PRAVASTATIN SOD 40 MG TAB PO SCH (08:59)
[2016-09-30] MEDS: guaiFENesin E.R. 600 MG TAB PO SCH (08:59)
[2016-09-30] MEDS: ASPIRIN EC 81 MG TABEC PO SCH (08:59)
[2016-09-30] MEDS: PANTOPRAZOLE SOD 40 MG DELAYED RELEASE TAB PO SCH (08:59)
[2016-09-30] MEDS: BENZONATATE 100 MG CAP PO SCH ×2 (08:59→12:56)
[2016-09-30] MEDS: SODIUM CHLORIDE 0.9% FLUSH 10 ML FLUSH IV FLUSH SCH (08:59)
[2016-09-30] MEDS: predniSONE 20 MG TAB PO SCH (09:00)
[2016-09-30] MEDS: BUDESONIDE-FORMOTEROL 160/4.5 MCG INHALER INH SCH (09:00)
[2016-09-30] MEDS: REMOVE OLD PATCH T-DERMAL SCH (09:00)
[2016-09-30] MEDS: NICOTINE 21 MG/24 HR PATCH T-DERMAL SCH (09:00)
[2016-09-30] MEDS: LIDOCAINE HCL 5% PATCH T-DERMAL SCH (09:01)
[2016-09-30] MEDS: oxyCODONE/ACETAMINOPHEN 10 MG/325 MG TAB PO PRN (09:11)
[2016-09-30 11:58] VITALS: BP 136/86; PULSE 90; RESP 20; TEMP 98.6; O2SAT 94
== END 2016-09-30 15:54 | disposition home or self-care (01) ==
LOC: NEPD 13:53 → NEDA 17:55 → NEPGCP 19:56
PROVIDERS: ADMIT Internal Medicine; ATTEND Internal Medicine
DX: R07.89 Other chest pain (principal); S22.32XA Fracture of one rib, left side, initial encounter for closed fracture; J44.1 Chronic obstructive pulmonary disease with (acute) exacerbation; F17.290 Nicotine dependence, other tobacco product, uncomplicated; I10 Essential (primary) hypertension; K21.9 Gastro-esophageal reflux disease without esophagitis; G89.29 Other chronic pain; M54.9 Dorsalgia, unspecified; F32.9 Major depressive disorder, single episode, unspecified; F41.9 Anxiety disorder, unspecified; Z88.5 Allergy status to narcotic agent; Z88.0 Allergy status to penicillin; Z89.512 Acquired absence of left leg below knee; Z88.8 Allergy status to other drugs, medicaments and biological substances; X58.XXXA Exposure to other specified factors, initial encounter; Z87.820 Personal history of traumatic brain injury
CPT/HCPCS: 71010; 71275; 80053; 80061; 80307; 82550; 82552; 84484; 85025; 85610; 85730; 94150; 94640; 94664; 96374; 96375; 97162; 97530; 99285; G0378; G8987; G8988; J2270; J2920; J2930; J7512; Q9967

== ENCOUNTER 2016-12-06 08:10 | Emergency (ER) | payer OTHER, MEDICAID ==
[~2016-12-06] VITALS: Ht 177.8 cm; Wt 115.0 kg
[~2016-12-06 08:10] MED LIST changes: +AMLO5 PO; +ASPI81TA11 PO; -BENI20TA5 PO; +BENZ100 PO; -CYCL1TAB29 PO; +ENDO10TA8 PO; +IPRASOL NEB; +LIDO5DIS35 T-DERMAL; +MUCI600T PO; +NEBULIZER1 MI1; +PRAV40TA PO; +PRED20 PO; -PRED5TAB PO; +SYMB160A INH
[2016-12-06 08:21] VITALS: BP 134/68; PULSE 90; RESP 20; TEMP 99.2; O2SAT 92
[2016-12-06 08:25] VITALS: BP 134/68; PULSE 90; RESP 20; TEMP 99.2; O2SAT 94
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
[2016-12-06] MEDS ORDERED: RANI150T PO (08:38)
[2016-12-06] MEDS ORDERED: LISI-515 PO (08:38)
[2016-12-06] MEDS ORDERED: TIZA4CAP3 PO (08:38)
[2016-12-06] MEDS ORDERED: CLIN1CAP6 PO (08:38)
[2016-12-06 08:43] LABS: AUTOMATED NEUTROPHIL # 4.5 TH/MM3 (1.8-7.7); BASOPHIL % 0.6 % (0.0-2.0); EOSINOPHIL # 0.3 TH/MM3 (0-0.4); EOSINOPHIL % 3.7 % (0.0-4.0); HEMO FLAGS DIFF FINAL; LYMPH % 31.9 % (9.0-44.0); LYMPHOCYTE # 2.6 TH/MM3 (1.0-4.8); MEAN CELL VOLUME 90.4 FL (80.0-100.0); MEAN CORPUSCULAR HEMOGLOBIN 31.7 PG (27.0-34.0); MEAN CORPUSCULAR HGB CONC 35.1 % (32.0-36.0); MONO % 9.7 % (0.0-8.0); NEUT % 54.1 % (16.0-70.0); PLATELET COUNT 259 TH/MM3 (150-450); RED BLOOD COUNT 5.19 MIL/MM3 (4.50-5.90); RED CELL DISTRIBUTION WIDTH 14.1 % (11.6-17.2); WHITE BLOOD COUNT 8.3 TH/MM3 (4.0-11.0)
[2016-12-06 08:53] LABS: AMPHETAMINE, URINE NEG (NEG); BARBITURATES, URINE NEG (NEG); COCAINE, URINE POS (NEG)
[2016-12-06 09:05] LABS: BICARBONATE 22.2 MEQ/L (21.0-32.0); POTASSIUM 3.9 MEQ/L (3.5-5.1)
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
[2016-12-06 12:13] VITALS: BP 107/66; PULSE 115; RESP 24; O2SAT 93
== END 2016-12-06 12:45 | disposition home or self-care (01) ==
LOC: NEPE 08:10
DX: F14.10 Cocaine abuse, uncomplicated (principal)
CPT/HCPCS: 80048; 80307; 85025; 99284

== ENCOUNTER 2017-07-13 20:54 | Emergency (ER) | payer OTHER, MEDICAID ==
[~2017-07-13 20:54] MED LIST changes: -ASPI81TA11 PO; +ASPI81TA23 PO; -BENZ100 PO; +CLIN300C5 PO; +IBUP1TAB7 PO; -IBUP800T23 PO; -LIDO5DIS35 T-DERMAL; +LISI-515 PO; -MUCI600T PO; -PRED20 PO; +RANI150T PO; -SYMB160A INH; +TIZA4CAP3 PO
[2017-07-13 21:20] VITALS: BP 120/59; PULSE 105; RESP 18; TEMP 98.6; O2SAT 98
--- NOTE | 2017-07-13 22:31 | RADRPT ---
EXAM DATE/TIME: 07/13/2017 21:38 [facility] COMPARISON: No previous studies available for comparison. INDICATIONS : Possible left femur infection. MEDICAL HISTORY : Diabetes mellitus type II. SURGICAL HISTORY : Left above knee amputation. ENCOUNTER: Initial ACUITY: 2 weeks PAIN SCORE: 5/10 LOCATION: Left femur. FINDINGS: 2 views of the left femur demonstrates distal femoral shaft amputation. There is some bony hypertrop hy about the distal osteotomy site with smooth margins and without focal areas of bony destruction an d without periosteal reaction. No radiopaque foreign bodies in the amputation stump stopped CONCLUSION: Osseous structures of the femur and amputation have a radiographically normal appearance. Van Lua MD on July 13, 2017 at 22:29 Board Certified Radiologist. This report was verified electronically.
[2017-07-14] MEDS ORDERED: VANCOMYCIN INJ 1,000 MG in SODIUM CHLOR 0.9% 250 ML INJ 250 ML IV ONE (00:30)
[2017-07-14] MEDS ORDERED: KETOROLAC TROMETHAMINE 30 MG/ML (IVP) VIAL IV PUSH ONE (00:30)
[2017-07-14] MEDS ORDERED: LEVOFLOXACIN 750 MG PREMIX INJ 150 ML IV ONE (00:30)
[2017-07-14 00:35] VITALS: BP 121/58; PULSE 92; RESP 16; O2SAT 92
[2017-07-14 00:47] LABS: BASOPHIL # 0.1 TH/MM3 (0-0.2); BASOPHIL % 0.6 % (0.0-2.0); EOSINOPHIL # 0.5 TH/MM3 (0-0.4); EOSINOPHIL % 5.5 % (0.0-4.0); HEMOGLOBIN 16.7 GM/DL (13.0-17.0); LYMPH % 35.3 % (9.0-44.0); LYMPHOCYTE # 2.9 TH/MM3 (1.0-4.8); MEAN CELL VOLUME 89.6 FL (80.0-100.0); MEAN CORPUSCULAR HEMOGLOBIN 31.3 PG (27.0-34.0); MEAN CORPUSCULAR HGB CONC 34.9 % (32.0-36.0); MEAN PLATELET VOLUME 10.1 FL (7.0-11.0); MONO % 10.2 % (0.0-8.0); MONOCYTE # 0.8 TH/MM3 (0-0.9); NEUT % 48.4 % (16.0-70.0); PLATELET COUNT 218 TH/MM3 (150-450); RED BLOOD COUNT 5.35 MIL/MM3 (4.50-5.90); RED CELL DISTRIBUTION WIDTH 14.1 % (11.6-17.2); WHITE BLOOD COUNT 8.3 TH/MM3 (4.0-11.0)
[2017-07-14 01:05] LABS: BICARBONATE 26.1 MEQ/L (21.0-32.0); CALCIUM 8.3 MG/DL (8.5-10.1); CREATININE 0.92 MG/DL (0.60-1.30)
[2017-07-14 01:40] LABS: PROTHROMBIN TIME - PATIENT 10.3 SEC (9.8-11.6)
--- NOTE | 2017-07-14 03:36 | RADRPT ---
EXAM DATE/TIME: 07/14/2017 02:43 [facility] COMPARISON: FEMUR LEFT (AP & LAT/2VWS), July 13, 2017, 21:38. INDICATIONS : Left femur pain post fall. RADIATION DOSE: 38.82 CTDIvol (mGy) MEDICAL HISTORY : Hypertension. SURGICAL HISTORY : Left lower amputation. ENCOUNTER: Initial ACUITY: 1 day PAIN SCALE: 5/10 LOCATION: Left leg TECHNIQUE: Volumetric scanning of the femur was performed. Using automated exposure control and adjustment of t he mA and/or kV according to patient size, radiation dose was kept as low as reasonably achievable to obtain optimal diagnostic quality images. DICOM format image data is available electronically for review and comparison. FINDINGS: The left femur is under mineralized. There has been prior above-knee amputation. No fracture is ident ified. Left hip joint demonstrates no acute finding. There is subcutaneous edema along the anterior a nd anterolateral aspect of the distal thigh. Muscles demonstrate no acute finding. CONCLUSION: 1. No acute femur abnormality is identified. The femur is under mineralized. 2. Subcutaneous edema along the anterolateral aspect of the femur. Abdirashid Posey MD on July 14, 2017 at 3:31 Board Certified Radiologist. This report was verified electronically.
[2017-07-14] MEDS ORDERED: DOXY100C PO (04:03)
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
== END 2017-07-14 04:25 | disposition home or self-care (01) ==
LOC: NEPE 20:54
DX: S70.12XA Contusion of left thigh, initial encounter (principal); I10 Essential (primary) hypertension; W05.0XXA Fall from non-moving wheelchair, initial encounter; Z72.0 Tobacco use
CPT/HCPCS: 73552; 73700; 80048; 85025; 85610; 85730; 87040; 96365; 96375; 99285; J1885; J1956; J3370; J7050